=== PATIENT | female | born 1990 | race Caucasian/White ===

== ENCOUNTER 2022-01-23 01:01 | Day surgery (SDC) | payer OTHER, SELFPAY ==
[2022-01-15 13:33] VITALS: BMI 25.7
--- NOTE | 2022-01-15 13:39 | PC.NURSE ---
Report to the Outpatient Waiting Room, entrance under the green pavilion located off [facility], at time 0930_ on date 01/23/22. OR Time: 1130. Time changes happen often and if your time is changed the preop area will call you the afternoon before. - You and your visitor will be asked to self-screen and do not enter if you have any COVID symptoms. - Only one visitor and NO children visitors are allowed at this time. - The patient visitor is requested to leave or wait in car when not with patient due to restrictions. - A mask is required within the hospital. Patients may have clear liquids (water, carbonated beverages, clear teas, apple juice) until 3 hours prior to surgery with a maximum of 20 ounces. - No food from midnight until time of surgery - Infants may have breast milk until 4 hours before surgery, infant formula 6 hours prior to surgery. - Children will be allowed to drink immediately following surgery. If applicable, please bring a bottle or sippy cup to assist with drinking. Juice, water, soda, and popsicles are readily available. For infants on formula, please bring formula the day of surgery. Pacifiers are allowed. Take the following medications with a SIP of water the morning of surgery: NONE Medications to discontinue per physician NONE Date to take last dose Please no make-up, nail cape verdean, hairspray, perfume, deodorant, or body powder the day of surgery. No jewelry (including any body piercings) or valuables the day of surgery, leave them at home. Please take a shower or bath the night before, or the morning of, surgery with an antibacterial soap. Wear comfortable, loose fitting clothing. Children are encouraged to wear pajamas. - Jewelry must be removed prior to entering the operating room. Rings and piercings that are not removed may be cut off. - The hospital will not accept responsibility for valuables. - Please leave all valuables, including medications, at home the day of surgery. If you are going home after surgery, a licensed bung driver must drive you home. - NO public transportation without another adult. - We recommend that an adult stay with you for 24 hours following discharge. - We also recommend that you do not drive, make important decision, drink alcoholic beverages, or take any drugs that were not prescribed by your health care provider for at least 24 hours after your discharge time. For Pediatric surgeries, we recommend two adults accompany the child home (only one inside the building at this time). Follow any additional instructions given to you from your surgeon. If you or anyone in your household have experienced Covid symptoms in the past week, please notify your surgeon or the nurse liaison at the phone number below for possible testing. Telephone instructions given to PATIENT_and asked if any additional questions and then verbalized understanding. Patient advised to call surgeon office or pre surgery nurse liaison [phone] if any additional questions.
--- NOTE | 2022-01-22 13:17 | P.PNAN_ITS ---
Anes - Initial Pre Proc Eval Procedure: Operation Date: 01/23/22 11:30 Proposed Procedures p Bilateral Breast Implant Removal Capsulectomy - Thom Deshpande MD s Bilateral Breast Mastopexy - Thom Deshpande MD Date/Time: 01/22/22 13:17 Surgeon: Thom Deshpande MD Pre Op Diagnosis: Hx of Bilateral Breast Augumentation Patient Data Age: 31 Gender: F Height: 1.63 m Weight: 68 kg Allergies Allergy/AdvReac Type Severity Reaction Status Date / Time Sulfa (Sulfonamide Allergy Unknown Hives Verified 01/23/22 09:26 Antibiotics) Home Medications Medication Instructions Recorded Confirmed Type No Home Medications 01/15/22 01/23/22 History Patient hx anesthesia problems: none Family hx anesthesia problems: none Results Review: All pre-operative results and documents have been reviewed as part of the pre- operative evaluation. [facility] Family History Family History (Updated 08/07/21 @ 07:40 by Martha Bruce) Grandparent Breast cancer Social History Social History (Updated 08/07/21 @ 07:40 by Martha Bruce) Smoking status: Never smoker Alcohol intake: former Other substance usage details: CBD [id number] Living arrangements: with family Anes - Eval Final PreProcedure Day of Procedure 01/22/22 13:17 Patient weight: overweight Heart: regular rate and rhythm Lungs: clear to auscultation and normal air movement Airway: Mallampati scale class II Neurological: alert and oriented Last oral intake: >/= 8 hours ASA classification: I Emergent: no Anesthetic plan: proceed Anesthesia type and monitoring: general GIVS Results Review: All pre-operative results and documents have been reviewed as part of the pre- operative evaluation. Informed Consent: The patient's anesthetic plan and its attendant risks and benefits were discussed with the patient/family/POA. Questions were solicited and answers provided to the satisfaction of the patient/family/POA.
[2022-01-23] VITALS (9 sets, daily range): BP systolic 96–106; BP diastolic 62–69; PULSE 69–84; RESP 16–18; TEMP 36.5–37.1; O2SAT 96–100
[2022-01-23 09:53] LABS: Urine Cotinine NEGATIVE
[2022-01-23] MEDS: LACTATED RINGERS 1,000 ML 30 ML IV CONT ×2 (10:04→14:29)
--- NOTE | 2022-01-23 10:47 | WPDHPUPDATE1 ---
History and Physical Update Update Date/Time: 01/23/22 10:47 History and Physical has been reviewed, including an updated exam of the patient. There are NO changes in the patient's condition. Risks, benefits, and alternatives have been discussed and questions answered. Patient agrees to proceed with procedure.
--- NOTE | 2022-01-23 11:26 | P.OP_ITS ---
Procedure Note - Detailed Date of Procedure 01/23/22 Pre-op Diagnosis Hx of Bilateral Breast Augumentation Post-op Diagnosis Same Procedure Performed 1. Bilateral breast implant removal with capsulectomy. 2. Bilateral mastopexy Surgeon Thom Deshpande MD Anesthesia General Findings Inverted T Superior medial pedicle Description of Procedure She is here today for the above. Previously and again today the risks, benefits, alternatives were discussed in extensive detail. I wanted her to be very realistic about the risks involved as well as expectations. We discussed aftercare and what to monitor for. Made sure answered all of her questions to her satisfaction today and consent was obtained. Marked in the preoperative holding area with their verification. The patient was taken to the operating room placed supine on the operating table. Anesthesia was provided by anesthesiology. A surgical time-out was taken. We cleansed the skin and 1% lidocaine and 0.25% Marcaine with epinephrine was used anesthetize as a field block. She was prepped and draped in a standard sterile fashion. A 15 blade used to make a vertical incision dissection was continued down until the implant capsule was identified. I excised as much capsule as possible as t here was significant adhesion to muscle and chest wall. The capsule was sent to pathology. Implants removed. I then copiously irrigated with 3 L of saline containing solution on TUR tubing. I tailor tacked the breast into position. Placed her in a sitting position. Verified the nipple-areolar location based on preoperative planning as well as intraoperative observations and measurements in full agreement. She was placed supine. I de-epithelialized the pedicle as well as inferior pole of the breast. An autoaugmentation flap was created and sutured to chest wall with 2-0 PDS. I elevated medial and lateral tissue flaps as well for planned closure. I closed along the IMF with 2-0 Stratafix. Along the vertical with 2-0 PDS. I closed around the Are[place] with 3-0 strata fix. 3-0 Monocryl along the vertical. 3-0 Stratafix along the IMF. I finally closed everything with running subcuticular 4-0 Monocryl and tissue glue. Fluffs and surgical bra were placed. Estimated Blood Loss 20 Drains No Packing No Pathology Yes (Bilateral breast implant capsules) Complications No immediate complications Condition Stable Disposition PACU
[2022-01-23] MEDS: ceFAZolin 2 GM/D5W 50 ML 2 GM/50 ML BAG IVPB (12:04)
[2022-01-23] MEDS: TRANEXAMIC ACID 1,000MG/ISO100 1,000 MG/100 ML BAG 200 MG IVPB (12:14)
[2022-01-23] MEDS: LACTATED RINGERS IRRIG 1,000 ML, LIDOCAINE HCL 1% LOCAL INJ 50 ML, EPINEPHrine HCL INJ ... INFILTRATE (12:30)
[2022-01-23] MEDS: fentaNYL CITRATE INJ (*CRX) 100 MCG/2 ML VIAL 25 MCG IV PUSH ×6 (14:40→15:16)
[2022-01-23] MEDS: oxyCODONE HCL (*CRX) 5 MG TAB IR PO (15:53)
== END 2022-01-23 16:16 | disposition home or self-care (01) ==
PROVIDERS: Visit Provider Surgery Plastic and Reconstructive Surgery
PROC: (CPT 19342; principal; 2022-01-23 11:30)
PROC: (CPT 19316; 2022-01-23 11:30)
DX: Z45.812 Encounter for adjustment or removal of left breast implant (principal); Z45.811 Encounter for adjustment or removal of right breast implant; Z80.3 Family history of malignant neoplasm of breast
CPT/HCPCS: 19371; 19316; 80307; 88304; A9270; J0131; J0171; J0690; J1100; J1170; J2250; J2405; J2704; J3010; J7120